=== PATIENT | female | born 1990 | race Caucasian/White ===

== ENCOUNTER 2019-09-20 20:10 | Inpatient (IN) ==
[2019-09-20] MEDS ORDERED: Isovue-370 500 ML BOTTLE IVP ONE (20:41)
[2019-09-20 21:27] LABS: Bilirubin,Urine Large (Negative); Blood,Urine Large (Negative); Clarity,Urine Cloudy (Clear); Color,Urine Orange (Yellow); Glucose,Urine (UA) Normal (Normal); Ketones,Urine Trace mg/dL (Negative); Leukocyte Esterase,Urine Small (Negative); Nitrite,Urine Positive (Negative); PH,Urine 5.5 pH Units (5.0-8.0); Protein,Urine Negative (Neg-Trace); Specific Gravity,Urine 1.025 (1.010-1.025); Urobilinogen,Urine Normal (Normal)
[2019-09-20 21:28] LABS: Bacteria,Urine Few per hpf (None-Few); Squamous Epithelial Cell,Urine Many per lpf (None-Few)
[2019-09-20 21:45] LABS: INR 2.3; Prothrombin Time 26.1 Seconds (9.4-12.1)
[2019-09-20 21:47] LABS: Activated Partial Thrombo Time 26.8 Seconds (26.0-36.0)
[2019-09-20 22:11] LABS: Basophils % 0.5 %; Eosinophils # 0.1 K/mcL (0.0-0.6); Eosinophils % 1.4 %; Hematocrit 33.3 % (35.3-44.9); Hemoglobin 11.7 g/dL (11.5-15.4); Immature Granulocytes % 0.3 % (0-4); Lymphocytes # 2.2 K/mcL (0.6-4.6); Lymphocytes % 37.9 %; Mean Corpuscular HGB Conc 35.1 g/dL (31.6-35.5); Mean Corpuscular Hemoglobin 33.2 pg (28.0-33.3); Mean Corpuscular Volume 94.6 fL (83.0-100.0); Mean Platelet Volume 9.2 fL (9.4-12.4); Monocytes # 0.5 K/mcL (0.0-1.3); Monocytes % 8.2 %; Nucleated Red Blood Cells 0.3 /100 WBC (0); Platelet Count 128 K/mcL (140-400); Red Blood Count 3.52 M/mcL (3.82-4.97); Segmented Neutrophils % 51.7 %; White Blood Count 5.8 K/mcL (4.3-11.1)
[2019-09-20 22:11] LABS: Acetaminophen < 10 mcg/mL (10-20); Alanine Aminotransferase 224 Units/L (7-52); Albumin 2.2 g/dL (3.5-5.7); Albumin/Globulin Ratio 0.4 (1.1-2.2); Alkaline Phosphatase 253 Units/L (34-104); Amylase 25 Units/L (29-103); Aspartate Amino Transferase 776 Units/L (13-39); BUN/Creatinine Ratio 7 (6-26); Bilirubin,Direct 6.2 mg/dL (0.0-0.2); Bilirubin,Indirect 5.4 mg/dL (0.0-1.0); Bilirubin,Total 11.6 mg/dL (0.3-1.0); Blood Urea Nitrogen 6 mg/dL (6-20); Calcium 8.4 mg/dL (8.6-10.3); Carbon Dioxide 20 mEq/L (23-29); Chloride 102 mEq/L (98-107); Globulin 6.1 g/dL (2.4-3.5); Glucose 88 mg/dL (70-105); Lipase 17 Units/L (11-82); Osmolality,Calculated 265 (280-300); Potassium 3.9 mEq/L (3.5-5.1); Sodium 129 mEq/L (136-145); Total Protein 8.3 g/dL (6.4-8.9); eGFR For African Americans > 60 (> 60); eGFR For Non-African Americans > 60 (> 60)
[2019-09-20 22:21] LABS: Hepatitis B Surface Antigen Nonreactive (Nonreactive)
[2019-09-20 22:50] LABS: Hepatitis B Core IgM Nonreactive (Nonreactive)
[2019-09-20 22:51] LABS: Hepatitis A Antibody IgM Nonreactive (Nonreactive); Hepatitis C Virus Antibody Nonreactive (Nonreactive)
[2019-09-21] MEDS ORDERED: Naloxone 0.4 MG/ML INJ IVP PRN (01:35)
[2019-09-21 04:47] LABS: Basophils # 0.1 K/mcL (0.0-0.2); Basophils % 0.9 %; Eosinophils % 0.3 %; Hematocrit 32.8 % (35.3-44.9); Hemoglobin 11.3 g/dL (11.5-15.4); Immature Granulocytes % 0.5 % (0-4); Lymphocytes # 1.9 K/mcL (0.6-4.6); Lymphocytes % 32.9 %; Mean Corpuscular HGB Conc 34.5 g/dL (31.6-35.5); Mean Corpuscular Hemoglobin 33.5 pg (28.0-33.3); Mean Corpuscular Volume 97.3 fL (83.0-100.0); Mean Platelet Volume 9.2 fL (9.4-12.4); Monocytes # 0.5 K/mcL (0.0-1.3); Monocytes % 9.4 %; Neutrophils # 3.2 K/mcL (1.6-8.9); Platelet Count 124 K/mcL (140-400); Red Blood Count 3.37 M/mcL (3.82-4.97); Red Cell Distribution Width 19.1 % (11.5-14.5); White Blood Count 5.8 K/mcL (4.3-11.1)
[2019-09-21 04:57] LABS: INR 2.3
[2019-09-21 05:00] LABS: Activated Partial Thrombo Time 36.6 Seconds (26.0-36.0)
[2019-09-21 05:06] LABS: C-Reactive Protein 11 mg/L (Less than 10); Ethanol < 10 mg/dL (Less than 10)
[2019-09-21 05:09] LABS: Alanine Aminotransferase 221 Units/L (7-52); Albumin 2.2 g/dL (3.5-5.7); Albumin/Globulin Ratio 0.4 (1.1-2.2); Alkaline Phosphatase 241 Units/L (34-104); Aspartate Amino Transferase 781 Units/L (13-39); BUN/Creatinine Ratio 6 (6-26); Bilirubin,Direct 6.6 mg/dL (0.0-0.2); Bilirubin,Total 11.6 mg/dL (0.3-1.0); Blood Urea Nitrogen 5 mg/dL (6-20); Calcium 8.2 mg/dL (8.6-10.3); Carbon Dioxide 25 mEq/L (23-29); Chloride 101 mEq/L (98-107); Cholesterol 76 mg/dL (< 200); Globulin 5.9 g/dL (2.4-3.5); Glucose 78 mg/dL (70-105); HDL Cholesterol 4 mg/dL (40-59); LDL Cholesterol,Calculated 51 mg/dL (0-99); Magnesium 1.6 mg/dL (1.6-2.6); Osmolality,Calculated 266 (280-300); Potassium 3.7 mEq/L (3.5-5.1); Sodium 130 mEq/L (136-145); Total Protein 8.1 g/dL (6.4-8.9); Triglycerides 107 mg/dL (< 150); eGFR For African Americans > 60 (> 60); eGFR For Non-African Americans > 60 (> 60)
[2019-09-21 05:10] LABS: % Iron Saturation 97 % (15-50); Iron 229 mcg/dL (50-170); Transferrin 168 mg/dL (203-362)
[2019-09-21 05:33] LABS: Ferritin 225 ng/mL (10-120)
[2019-09-21] MEDS: predniSONE 20 MG TABLET PO SCH (14:47)
[2019-09-22 05:25] LABS: INR 2.4; Prothrombin Time 27.6 Seconds (9.4-12.1)
[2019-09-22 05:26] LABS: Basophils % 0.3 %; Eosinophils % 0.1 %; Hematocrit 32.2 % (35.3-44.9); Hemoglobin 10.8 g/dL (11.5-15.4); Immature Granulocytes % 0.4 % (0-4); Lymphocytes # 1.6 K/mcL (0.6-4.6); Lymphocytes % 23.1 %; Mean Corpuscular HGB Conc 33.5 g/dL (31.6-35.5); Mean Corpuscular Hemoglobin 32.8 pg (28.0-33.3); Mean Corpuscular Volume 97.9 fL (83.0-100.0); Mean Platelet Volume 9.4 fL (9.4-12.4); Monocytes # 0.4 K/mcL (0.0-1.3); Monocytes % 5.2 %; Neutrophils # 4.8 K/mcL (1.6-8.9); Platelet Count 118 K/mcL (140-400); Red Blood Count 3.29 M/mcL (3.82-4.97); Red Cell Distribution Width 19.3 % (11.5-14.5); Segmented Neutrophils % 70.9 %; White Blood Count 6.8 K/mcL (4.3-11.1)
[2019-09-22 05:44] LABS: Alanine Aminotransferase 182 Units/L (7-52); Albumin/Globulin Ratio 0.4 (1.1-2.2); Alkaline Phosphatase 218 Units/L (34-104); Aspartate Amino Transferase 597 Units/L (13-39); BUN/Creatinine Ratio 7 (6-26); Bilirubin,Total 9.6 mg/dL (0.3-1.0); Blood Urea Nitrogen 6 mg/dL (6-20); Calcium 8.1 mg/dL (8.6-10.3); Carbon Dioxide 25 mEq/L (23-29); Chloride 103 mEq/L (98-107); Globulin 5.5 g/dL (2.4-3.5); Glucose 94 mg/dL (70-105); Osmolality,Calculated 269 (280-300); Sodium 131 mEq/L (136-145); Total Protein 7.5 g/dL (6.4-8.9); eGFR For African Americans > 60 (> 60); eGFR For Non-African Americans > 60 (> 60)
[2019-09-22] MEDS: predniSONE 20 MG TABLET PO SCH (08:21)
[2019-09-23 03:00] LABS: Hematocrit 30.5 % (35.3-44.9); Hemoglobin 10.7 g/dL (11.5-15.4); Mean Corpuscular HGB Conc 35.1 g/dL (31.6-35.5); Mean Corpuscular Hemoglobin 33.6 pg (28.0-33.3); Mean Corpuscular Volume 95.9 fL (83.0-100.0); Mean Platelet Volume 9.1 fL (9.4-12.4); Platelet Count 125 K/mcL (140-400); Red Blood Count 3.18 M/mcL (3.82-4.97); Red Cell Distribution Width 19.3 % (11.5-14.5); White Blood Count 9.3 K/mcL (4.3-11.1)
[2019-09-23 03:02] LABS: INR 2.2; Prothrombin Time 25.4 Seconds (9.4-12.1)
[2019-09-23 03:19] LABS: Alanine Aminotransferase 156 Units/L (7-52); Albumin/Globulin Ratio 0.4 (1.1-2.2); Alkaline Phosphatase 257 Units/L (34-104); Aspartate Amino Transferase 464 Units/L (13-39); BUN/Creatinine Ratio 10 (6-26); Bilirubin,Direct 5.1 mg/dL (0.0-0.2); Bilirubin,Indirect 3.1 mg/dL (0.0-1.0); Bilirubin,Total 8.2 mg/dL (0.3-1.0); Blood Urea Nitrogen 8 mg/dL (6-20); Calcium 7.9 mg/dL (8.6-10.3); Carbon Dioxide 27 mEq/L (23-29); Chloride 100 mEq/L (98-107); Globulin 5.2 g/dL (2.4-3.5); Glucose 104 mg/dL (70-105); Osmolality,Calculated 269 (280-300); Potassium 3.9 mEq/L (3.5-5.1); Sodium 130 mEq/L (136-145); Total Protein 7.2 g/dL (6.4-8.9); eGFR For African Americans > 60 (> 60); eGFR For Non-African Americans > 60 (> 60)
[2019-09-23] MEDS: predniSONE 20 MG TABLET PO SCH (09:07)
[2019-09-23 11:39] VITALS: BP 113/75
[2019-09-23] MEDS ORDERED: Spironolactone 25 MG TABLET PO SCH (11:47)
[2019-09-23] MEDS ORDERED: *HR* Phytonadione 5 MG TABLET PO ONE (11:48)
[2019-09-23] MEDS ORDERED: Furosemide 40 MG/4 ML VIAL IVP SCH (11:48)
[2019-09-23] MEDS ORDERED: predniSONE 20 MG TABLET PO ONE (16:46)
[2019-09-24] MEDS ORDERED: predniSONE 20 MG TABLET PO SCH (09:00)
[2019-09-24 10:56] LABS: ANA IgG by ELISA NONE DETECTED (None Detected)
[2019-09-26 10:17] LABS: Cytomegalovirus DNA (PCR) NOT DETECTED
[2019-09-26 19:55] LABS: C282Y Hemochromatosis Mutation NEGATIVE; H63D Hemochromatosis Mutation NEGATIVE; HFE Specimen Type WHOLE BLOOD; S65C Hemochromatosis Mutation NEGATIVE
== END 2019-09-23 18:42 | disposition short-term general hospital (02) | DRG 432 ==
LOC: EMEROOARM 20:10 → 3BNU 20:10 → SUATTDRO 09-21 00:19 → OBSVTOIN 09-21 00:19 → 3BNU 09-21 01:40
PROVIDERS: ADMIT Student in an Organized Health Care Education/Training Program; ATTEND Internal Medicine

== ENCOUNTER 2021-01-17 08:26 | Observation (INO) ==
[2021-01-17] MEDS ORDERED: Ondansetron 4 MG/2 ML VIAL IVP ONE (08:54)
[2021-01-17] MEDS ORDERED: 0.9 % Sodium Chloride 1,000 ML IVC ONE (08:54)
[2021-01-17] MEDS ORDERED: *HR* FentaNYL (PF) 100 MCG/2 ML VIAL IVP ONE (08:55)
[2021-01-17 09:19] LABS: Basophils % 0.5 %; Hemoglobin 14.4 g/dL (11.5-15.4); Immature Granulocytes % 0.5 % (0-4); Mean Corpuscular Volume 87.4 fL (83.0-100.0)
[2021-01-17 09:21] LABS: Eosinophils % 0.3 %; Hematocrit 44.3 % (35.3-44.9); Immature Platelets 2.2 % (1.1-6.1); Lymphocytes % 16.8 %; Mean Corpuscular HGB Conc 32.5 g/dL (31.6-35.5); Mean Corpuscular Hemoglobin 28.4 pg (28.0-33.3); Monocytes # 0.4 K/mcL (0.0-1.3); Monocytes % 7.5 %; Neutrophils # 4.4 K/mcL (1.6-8.9); Red Blood Count 5.07 M/mcL (3.82-4.97); Red Cell Distribution Width 14.3 % (11.5-14.5); Segmented Neutrophils % 74.4 %; White Blood Count 5.9 K/mcL (4.3-11.1)
[2021-01-17 09:24] LABS: Platelet Count 87 K/mcL (140-400)
[2021-01-17 09:30] LABS: Bacteria,Urine Few per hpf (None-Few); Bilirubin,Urine Negative (Negative); Blood,Urine Negative (Negative); Clarity,Urine Turbid (Clear); Color,Urine Yellow (Yellow); Glucose,Urine (UA) Normal (Normal); Ketones,Urine 10 mg/dL (Negative); Leukocyte Esterase,Urine Large (Negative); Mucus,Urine Few per lpf (None-Few); Nitrite,Urine Negative (Negative); PH,Urine 6.5 pH Units (5.0-8.0); Protein,Urine 50 mg/dL (Neg-Trace); Specific Gravity,Urine 1.028 (1.010-1.025); Squamous Epithelial Cell,Urine Moderate per hpf (None-Few)
[2021-01-17 09:34] LABS: Alanine Aminotransferase 29 Units/L (7-52); Albumin/Globulin Ratio 1.3 (1.1-2.2); Alkaline Phosphatase 127 Units/L (34-104); Aspartate Amino Transferase 33 Units/L (13-39); BUN/Creatinine Ratio 11 (6-26); Bilirubin,Direct 0.2 mg/dL (0.0-0.2); Bilirubin,Indirect 1.3 mg/dL (0.0-1.0); Bilirubin,Total 1.5 mg/dL (0.3-1.0); Blood Urea Nitrogen 8 mg/dL (6-20); Carbon Dioxide 22 mEq/L (23-29); Chloride 106 mEq/L (98-107); Ethanol < 10 mg/dL (Less than 10); Globulin 3.1 g/dL (2.4-3.5); Glucose 112 mg/dL (70-105); Lipase 32 Units/L (11-82); Osmolality,Calculated 283 (280-300); Potassium 3.7 mEq/L (3.5-5.1); Sodium 137 mEq/L (136-145); Total Protein 7.1 g/dL (6.4-8.9); eGFR For African Americans > 60 (> 60); eGFR For Non-African Americans > 60 (> 60)
[2021-01-17 09:59] LABS: Amphetamine Screen,Urine Negative ng/mL (Cutoff=1000); Barbiturate Screen,Urine Negative ng/mL (Cutoff=200); Benzodiazepines Screen,Urine Negative ng/mL (Cutoff=200); Cannabinoid Screen,Urine Positive ng/mL (Cutoff = 50); Cocaine Screen,Urine Negative ng/mL (Cutoff= 300); Opiate Screen,Urine Negative ng/mL (Cutoff=300); Phencyclidine Screen,Urine Negative ng/mL (Cutoff=25)
[2021-01-17] MEDS ORDERED: 0.9 % Sodium Chloride 1,000 ML IV ONE (10:04)
[2021-01-17] MEDS ORDERED: Isovue-370 500 ML BOTTLE IVP ONE (10:04)
[2021-01-17 10:55] LABS: INR 1.2; Prothrombin Time 14.1 Seconds (9.4-12.1)
[2021-01-17] MEDS ORDERED: levoFLOXacin 500 MG/100 ML 500 MG/100 ML BAG IVPB ONE (11:38)
[2021-01-17] MEDS ORDERED: Naloxone 0.4 MG/ML INJ IVP PRN (14:06)
[2021-01-17] MEDS ORDERED: Pantoprazole 40 MG in 0.9 % Sodium Chloride Mini Bag 100 ML IVC SCH (15:15)
[2021-01-17] MEDS: cefTRIAXone 1,000 MG in Water for inj. (sterile) 10 ML IVP SCH (16:43)
[2021-01-17] MEDS: Octreotide 400 MCG in 0.9 % Sodium Chloride 100 ML IVC SCH (16:47)
[2021-01-17] MEDS: Ringers Solution, Lactated 1,000 ML IVC SCH (16:51)
[2021-01-17] MEDS: Pantoprazole 40 MG VIAL IVP SCH (17:55)
[2021-01-17] MEDS: Ondansetron 4 MG/2 ML VIAL IVP PRN (17:55)
[2021-01-17] MEDS ORDERED: Pantoprazole 40 MG VIAL IVP SCH (18:00)
[2021-01-17 20:32] LABS: Adenovirus Not Detected (Not Detect); Bordetella Pertussis Not Detected (Not Detect); Chlamydophila pneumoniae Not Detected (Not Detect); Coronavirus 229E Not Detected (Not Detect); Coronavirus HKU1 Not Detected (Not Detect); Coronavirus NL63 Not Detected (Not Detect); Coronavirus OC43 Not Detected (Not Detect); Human Metapneumovirus Not Detected (Not Detect); Human Rhinovirus/Enterovirus Not Detected (Not Detect); Influenza A Subtype 2009 H1 Not Detected (Not Detect); Influenza B Not Detected (Not Detect); Mycoplasma pneumoniae Not Detected (Not Detect); Parainfluenza Virus 1 Not Detected (Not Detect); Parainfluenza Virus 2 Not Detected (Not Detect); Parainfluenza Virus 3 Not Detected (Not Detect); Parainfluenza Virus 4 Not Detected (Not Detect); Respiratory Syncytial Virus Not Detected (Not Detect); SARS-CoV-2 Not Detected (Not Detect)
[2021-01-17 23:36] LABS: Adenovirus F 40/41 PCR Not detected (Not detect); Astrovirus PCR DETECTED (Not detect); C.difficile Toxin A/B Gene PCR Not detected (Not detect); Campylobacter by PCR Not detected (Not detect); Cryptosporidium by PCR Not detected (Not detect); Cyclospora cayetanensis PCR Not detected (Not detect); E. coli O157 by PCR Not detected (Not detect); Entamoeba histolytica PCR Not detected (Not detect); Enteroaggregative E.coli(EAEC) Not detected (Not detect); Enteropathogenic E.coli(EPEC) Not detected (Not detect); Enterotoxigenic E.coli (ETEC) Not detected (Not detect); Giardia lamblia PCR Not detected (Not detect); Plesiomonas shigelloides PCR Not detected (Not detect); Salmonella PCR Not detected (Not detect); Shig/EnteroinvasiveE coli EIEC Not detected (Not detect); Shigalike tox-prod E coli STEC Not detected (Not detect); Vibrio PCR Not detected (Not detect); Vibrio cholerae PCR Not detected (Not detect); Yersinia enterocolitica PCR Not detected (Not detect)
[2021-01-17 23:37] LABS: Norovirus GI/GII PCR Not detected (Not detect); Rotavirus A PCR Not detected (Not detect); Sapovirus PCR Not detected (Not detect)
[2021-01-18] MEDS: Octreotide 400 MCG in 0.9 % Sodium Chloride 100 ML IVC SCH ×3 (00:03→17:01)
[2021-01-18] MEDS: Ondansetron 4 MG/2 ML VIAL IVP PRN ×2 (04:16→19:37)
[2021-01-18 05:15] LABS: Basophils % 0.6 %; Eosinophils % 0.9 %; Hemoglobin 12.9 g/dL (11.5-15.4); Immature Platelets 1.9 % (1.1-6.1); Lymphocytes # 1.1 K/mcL (0.6-4.6); Lymphocytes % 32.8 %; Mean Corpuscular HGB Conc 31.5 g/dL (31.6-35.5); Mean Corpuscular Hemoglobin 28.2 pg (28.0-33.3); Mean Corpuscular Volume 89.5 fL (83.0-100.0); Mean Platelet Volume 9.4 fL (9.4-12.4); Monocytes # 0.3 K/mcL (0.0-1.3); Monocytes % 8.8 %; Neutrophils # 1.9 K/mcL (1.6-8.9); Red Blood Count 4.58 M/mcL (3.82-4.97); Red Cell Distribution Width 14.5 % (11.5-14.5); Segmented Neutrophils % 56.9 %; White Blood Count 3.4 K/mcL (4.3-11.1)
[2021-01-18 05:17] LABS: Platelet Count 62 K/mcL (140-400)
[2021-01-18 05:22] LABS: INR 1.3; Prothrombin Time 14.5 Seconds (9.4-12.1)
[2021-01-18 05:31] LABS: BUN/Creatinine Ratio 7 (6-26); Blood Urea Nitrogen 5 mg/dL (6-20); Calcium 8.3 mg/dL (8.6-10.3); Carbon Dioxide 23 mEq/L (23-29); Chloride 108 mEq/L (98-107); Glucose 121 mg/dL (70-105); Osmolality,Calculated 283 (280-300); Potassium 3.9 mEq/L (3.5-5.1); Sodium 137 mEq/L (136-145); eGFR For African Americans > 60 (> 60); eGFR For Non-African Americans > 60 (> 60)
[2021-01-18 05:33] LABS: Albumin 3.3 g/dL (3.5-5.7); Albumin/Globulin Ratio 1.2 (1.1-2.2); Bilirubin,Direct 0.2 mg/dL (0.0-0.2); Bilirubin,Indirect 0.6 mg/dL (0.0-1.0); Bilirubin,Total 0.8 mg/dL (0.3-1.0); Globulin 2.8 g/dL (2.4-3.5); Total Protein 6.1 g/dL (6.4-8.9)
[2021-01-18] MEDS: Pantoprazole 40 MG VIAL IVP SCH ×2 (06:05→17:02)
[2021-01-18] MEDS: Ringers Solution, Lactated 1,000 ML IVC SCH (08:38)
[2021-01-18] MEDS: cefTRIAXone 1,000 MG in Water for inj. (sterile) 10 ML IVP SCH (09:40)
[2021-01-18] MEDS ORDERED: Chloraseptic Spray 177 ML BOTTLE MM PRN (09:48)
[2021-01-18] MEDS ORDERED: *HR* Promethazine 25 MG/ML VIAL IM ONE (09:56)
[2021-01-18] MEDS ORDERED: Morphine Sulfate 2 MG/ML SYRINGE IVP ONE (10:28)
[2021-01-18] MEDS ORDERED: *HR* Propofol 200 MG/20 ML VIAL IVP ONE (12:51)
[2021-01-18] MEDS ORDERED: Lidocaine -MPF 2% 5 ML VIAL SQ ONE (12:51)
[2021-01-18] MEDS ORDERED: Ondansetron 4 MG/2 ML VIAL IVP ONE (12:51)
[2021-01-18] MEDS ORDERED: *HR* OxyCODONE/APAP 5/325 TABLET PO PRN (19:48)
[2021-01-18] MEDS: *HR* OxyCODONE Immed Rel 5 MG TABLET PO PRN (21:13)
[2021-01-19] MEDS: Octreotide 400 MCG in 0.9 % Sodium Chloride 100 ML IVC SCH (01:49)
[2021-01-19] MEDS: Ondansetron 4 MG/2 ML VIAL IVP PRN (01:53)
[2021-01-19] MEDS: Pantoprazole 40 MG VIAL IVP SCH (05:42)
[2021-01-19 07:05] LABS: Basophils % 0.5 %; Mean Corpuscular HGB Conc 32.6 g/dL (31.6-35.5); Red Cell Distribution Width 14.4 % (11.5-14.5)
[2021-01-19 07:07] LABS: Hematocrit 39.3 % (35.3-44.9); Hemoglobin 12.8 g/dL (11.5-15.4); Immature Platelets 2.6 % (1.1-6.1); Lymphocytes # 1.7 K/mcL (0.6-4.6); Lymphocytes % 41.5 %; Mean Corpuscular Hemoglobin 28.3 pg (28.0-33.3); Mean Corpuscular Volume 86.9 fL (83.0-100.0); Mean Platelet Volume 9.4 fL (9.4-12.4); Monocytes # 0.3 K/mcL (0.0-1.3); Monocytes % 8.5 %; Neutrophils # 1.9 K/mcL (1.6-8.9); Red Blood Count 4.52 M/mcL (3.82-4.97); Segmented Neutrophils % 47.5 %
[2021-01-19 07:08] LABS: Platelet Count 65 K/mcL (140-400)
[2021-01-19 07:18] LABS: BUN/Creatinine Ratio 8 (6-26); Blood Urea Nitrogen 6 mg/dL (6-20); Calcium 8.3 mg/dL (8.6-10.3); Carbon Dioxide 26 mEq/L (23-29); Chloride 107 mEq/L (98-107); Glucose 91 mg/dL (70-105); Osmolality,Calculated 281 (280-300); Sodium 137 mEq/L (136-145); eGFR For African Americans > 60 (> 60); eGFR For Non-African Americans > 60 (> 60)
[2021-01-19] MEDS: cefTRIAXone 1,000 MG in Water for inj. (sterile) 10 ML IVP SCH (08:08)
[2021-01-19 08:16] VITALS: BP 146/97
[2021-01-19] MEDS: *HR* OxyCODONE Immed Rel 5 MG TABLET PO PRN (08:21)
[2021-01-19 11:09] LABS: Amylase 20 Units/L (29-103); Lipase 20 Units/L (11-82)
== END 2021-01-19 12:52 | disposition home or self-care (01) ==
LOC: CDU 08:26 → EMEROOARM 08:26 → SUATTDRO 12:15 → CDU 13:30 → 3ANU 19:24
PROVIDERS: ADMIT Internal Medicine; ATTEND Student in an Organized Health Care Education/Training Program